=== PATIENT | female | born 1940 | race Caucasian/White ===

== ENCOUNTER → 2021-11-09 09:58 | Outpatient (CLI) | payer OTHER, SELFPAY ==
[2021-11-09 11:07] LABS: COVID19 -Nasal RAPID Negative (Negative)
== END ==
PROVIDERS: PCP Internal Medicine; Visit Provider Surgery
DX: Z20.822 Contact with and (suspected) exposure to COVID-19 (principal); Z01.812 Encounter for preprocedural laboratory examination
CPT/HCPCS: 87635; C9803

== ENCOUNTER 2021-11-12 08:43 | Day surgery (SDC) | payer OTHER, SELFPAY ==
[2021-11-12] VITALS (8 sets, daily range): BP systolic 88–135; BP diastolic 40–68; PULSE 47–58; RESP 11–18; TEMP 36.1–36.5; O2SAT 97–100; BMI 26.0
[2021-11-12] MEDS: SODIUM CHLORIDE 0.9% 1,000 ML 84 ML IV (09:42)
--- NOTE | 2021-11-12 10:48 | PM.HP.1 ---
History of Present Illness History of Present Illness Date Patient Seen: 11/12/21 Time Patient Seen: 10:48 Chief complaint: EGD W/POSS BX Narrative: I reviewed my note from September 11. No significant changes with the exception of overall improvement on omeprazole. Patient History Family & Social History Social History: household members family Tobacco & Substance use: Smoking Status Never smoker alcohol intake current alcohol intake frequency holiday/special occasion Substance Use Type does not use Meds Home Medications and Allergies Home Medications Medication Instructions Recorded Confirmed Type amlodipine 5 mg tablet 5 mg PO BEDTIME 11/12/21 11/12/21 History levothyroxine 88 mcg tablet 88 mcg PO DAILY 11/12/21 11/12/21 History lisinopril 10 mg tablet 10 mg PO DAILY 11/12/21 11/12/21 History metoprolol succinate 25 mg 25 mg PO DAILY 11/12/21 11/12/21 History tablet,extended release 24 hr naproxen 220 mg-diphenhydramine 25 1 tab PO BEDTIME 11/12/21 11/12/21 History mg tablet (Aleve PM) omeprazole 20 mg capsule,delayed 20 mg PO DAILY 11/12/21 11/12/21 History release pravastatin 40 mg tablet 40 mg PO BEDTIME 11/12/21 11/12/21 History pregabalin 150 mg capsule 150 mg PO BID 11/12/21 11/12/21 History zolpidem 5 mg tablet 5 mg PO BEDTIME 11/12/21 11/12/21 History Allergies Allergy/AdvReac Type Severity Reaction Status Date / Time acetaminophen [From Percocet] AdvReac Intermediate ITCHING Verified 11/12/21 09:43 oxycodone [From Percocet] AdvReac Intermediate ITCHING Verified 11/12/21 09:43 Review of Systems Review of Systems ROS: Yes All systems reviewed with the patient and are negative except as otherwise documented Exam Vital Signs (past 8 hours): - 11/12/21 09:53 Temperature 97.4 F L Pulse Rate 58 L Respiratory Rate 18 Blood Pressure 135/68 Pulse Oximetry 98 Oxygen Delivery Method Room Air Oxygen Delivery Method Room Air Const General: cooperative HENMT Head: normal to inspection Eyes General: appearance normal, both eyes and all related structures Neck Neck: normal visual inspection Chest Chest: normal inspection of the chest Resp Effort & Inspection: normal respiratory effort Cardio Rate: regular rate GI Inspection: normal to inspection Skin General: no rashes or lesions noted Neuro General: patient alert and patient awake Extrem General: normal to inspection and no pedal edema Psych Appearance: grossly normal Assessment & Plan Assessment & Plan narrative: 81-year-old with dysphagia and odynophagia. EGD is pursued today. Time Spent With Patient Critical Care time: I spent a total of [] minutes of critical care time on this patient's care today; this time is exclusive of procedural time.
--- NOTE | 2021-11-12 10:50 | PM.PREOP ---
Pre-operative Note COVID-19 COVID-19 status: Negative Result date/Date tested (Pos, Neg/Pending): 11/09/21 Criteria for continued procedure: Possibility delay results in more complex future surgery or treatment Interval Note History & Physical reviewed/Exam performed by Physician: Yes Changes to H&P: No ASA Class (for procedural sedation): II
--- NOTE | 2021-11-12 11:40 | P.OP.EGD_ITS ---
Operative Date/Time/Diagnoses Date of procedure: 11/12/21 Time of procedure: 11:40 Pre-op diagnosis: Dysphagia odynophagia Post-op diagnosis: same Procedure & Clinicians Study performed: EGD Same procedure as scheduled: Yes Indications: Dysphagia odynophagia Surgeon: Refugio Bui Procedure Notes SCOAP/Timeout: Done Procedure in detail: After the risks and benefits were explained, written and verbal informed consent was obtained. The patient was brought into the procedure room and placed into the left lateral decubitus position. Please see nurse flavor tank tender notes for sedation details. The scope was introduced into the mouth through the bite block and advanced under direct visualization to the 2nd portion of the duodenum. The scope was slowly withdrawn carefully examining the mucosa for any defects or lesions. Retroflexed views were accomplished in the stomach. The stomach was decompressed, the scope was then removed from the patient who tolerated the procedure well. Sedation minutes: 10 Specimen(s): none sent Complications: none Impression: 1. Duodenum: This was visually normal from the bulb through the 2nd portion. 2. Stomach: No ulcers no outlet obstruction no mass lesions. Retroflexed views of the LES disclosed a small sliding hiatal hernia. 3. Esophagus: The squamocolumnar junction correlated nicely with the top of the gastric folds. The Z-line was sharp and well demarcated. No sign of any active inflammation at this time. No Schatzki's ring no stricture. The GE junction was at 34 cm from the incisors and the diaphragmatic pinchcock was at approximately 36 cm from the incisors. The distal esophagus was moderately tortuous. No mucosal lesions identified throughout. Endoscopic diagnosis 1. Small sliding hiatal hernia 2. Tortuous esophagus Post-procedure Plan for aftercare: 1. Continue to completely masticate all food. 2. Continue anti-reflux therapy 3. Follow-up GI clinic any time as needed. Disposition: PACU
== END 2021-11-12 12:35 | disposition home or self-care (01) ==
PROVIDERS: PCP Internal Medicine; Referring Provider Internal Medicine Gastroenterology; Visit Provider Internal Medicine Gastroenterology
PROC: 0DJ08ZZ Inspection of Upper Intestinal Tract, Via Natural or Artificial Opening Endoscopic (ICD-10-PCS; CPT 43235; principal; 2021-11-12 10:30)
DX: R13.10 Dysphagia, unspecified (principal); K44.9 Diaphragmatic hernia without obstruction or gangrene
CPT/HCPCS: 43235; J2704